=== PATIENT | female | born 1985 | race Caucasian/White ===

== ENCOUNTER 2025-02-07 15:08 | Emergency (ER) | payer MEDICAID ==
[~2025-02-07] VITALS: Ht 152.4 cm; Wt 69.0 kg
[2025-02-07 15:27] VITALS: O2SAT 96
[2025-02-07 15:44] VITALS: BP 114/53; PULSE 83; RESP 18; TEMP 36.7; O2SAT 98
[2025-02-07] MEDS: KETOROLAC 15MG/ML VIAL IM ONE (16:26)
[2025-02-07] MEDS ORDERED: IBUP-2028 MT (17:42)
== END 2025-02-07 18:38 | disposition home or self-care (01) ==
LOC: ER 15:08
DX: M25.512 Pain in left shoulder (principal); R51.9 Headache, unspecified; R07.9 Chest pain, unspecified; Z98.890 Other specified postprocedural states
CPT/HCPCS: 99283; 81025; 73030; 93005; 96372; J1885